=== PATIENT | male | born 1985 | race American Indian/Alaskan Native ===

== ENCOUNTER → 2023-05-14 15:34 | Outpatient (BNVA) | payer BC, MEDICAID, SELFPAY | PROVIDERS: Visit Provider Student in an Organized Health Care Education/Training Program | DX: M79.641 Pain in right hand (principal); M79.642 Pain in left hand; G56.01 Carpal tunnel syndrome, right upper limb | CPT/HCPCS: 73130 ==

== ENCOUNTER → 2023-05-19 15:52 | Outpatient (BNVA) | payer BC, MEDICAID, SELFPAY | PROVIDERS: Visit Provider Student in an Organized Health Care Education/Training Program | DX: S83.8X2A Sprain of other specified parts of left knee, initial encounter; X58.XXXA Exposure to other specified factors, initial encounter | CPT/HCPCS: 73560; 73565 ==

== ENCOUNTER 2023-05-26 16:30 | Emergency (ER) | payer BC, MEDICAID, SELFPAY ==
--- NOTE | 2023-05-26 16:32 | XRR_ITS ---
PROCEDURE INFORMATION: Exam: XR Chest Exam date and time: 05/26/2023 4:48 PM Age: 38 years old Clinical indication: Pain; Angina pectoris; Additional info: Cp TECHNIQUE: Imaging protocol: Radiologic exam of the chest. Views: 1 view. COMPARISON: No relevant prior studies available. FINDINGS: Lungs: Unremarkable. No consolidation. Pleural spaces: Unremarkable. No pleural effusion. No pneumothorax. Heart/Mediastinum: Unremarkable. No cardiomegaly. Bones/joints: Unremarkable. XR/XR chest 1V portable [id number] IMPRESSION: No acute findings.
--- NOTE | 2023-05-26 16:32 | ECG_ITS ---
[facility] Test Date: 2023-05-26 Pat Name: Deangelo Oneill Department: Room: Gender: Male Hub Bander: : 1985 Requested By: Foster Dunham Order Number: [id number] Tonia MD: Andreas Donis M.D. Measurements Intervals [place] Rate: 132 P: 49 VT: 167 QRS: 101 QRSD: 88 T: 4 QT: 301 QTc: 447 Interpretive Statements SINUS TACHYCARDIA RIGHT AXIS DEVIATION [QRS AXIS > 100] No previous ECG available for comparison Electronically Signed On 05-26-2023 16:49:41 LICENSED SURVEYOR by Andreas Donis M.D. [id number]
[2023-05-26 16:39] VITALS: BP 158/97; PULSE 123; RESP 16; TEMP 36.7; O2SAT 96; BMI 34.7
[2023-05-26 17:12] LABS: Basophils % 0.6 %; Eosinophils # 0.1 10^3/uL (0.0-0.8); Eosinophils % 0.9 %; Hematocrit 49.5 % (37-53); Lymphocytes # 0.9 10^3/uL (0.8-4.8); Lymphocytes % 12.5 %; Mean Corpuscular HGB Conc 34.5 g/dL (30-55); Mean Corpuscular Hemoglobin 29.3 pg (27-33); Mean Corpuscular Volume 84.9 fl (82-101); Mean Platelet Volume 10.1 fL (7.4-10.4); Monocytes % 14.4 %; Neutrophils # 4.86 10^3/uL (1.8-7.7); Neutrophils % 71.3 %; Nucleated Red Blood Cells % 0 %; Platelet Count 202 10^3/cmm (157-399); Red Blood Count 5.83 10^6/uL (3.85-5.65); Red Cell Distribution Width 12.4 % (12.1-15.1); White Blood Count 6.81 10^3/uL (3.29-11.43)
[2023-05-26 17:39] LABS: Alanine Aminotransferase 31 U/L (0-41); Albumin Level 4.9 g/dL (3.5-5.2); Alkaline Phosphatase 62 U/L (40-130); Aspartate Amino Transferase 26 U/L (0-40); Blood Urea Nitrogen 14 mg/dL (6-20); Calcium 9.8 mg/dL (8.5-10.5); Carbon Dioxide 22 mmol/L (22-29); Chloride 105 mmol/L (98-107); Creatinine Clr Calc Pharmacy 117.8887; Globulin 2.3 g/dL (1.3-4.6); Glomerular Filtration Rate 84.1 mL/min (90-130); Glucose 105 mg/dL (65-115); Lipase 70 U/L (13-60); Osmolality Calculated 289 mOsm/kg (285-295); Sodium 139 mmol/L (136-145); Total Bilirubin 0.4 mg/dL (0.15-1.2); Total Protein 7.2 g/dL (6.6-8.7)
[2023-05-26 17:53] LABS: Troponin(5th) Baseline < 6 ng/L (0-15)
[2023-05-26 18:20] LABS: ABG PCO2 32.5 mmHg (35-45); ABG PH Result 7.44 (7.35-7.45); Alveolar-Arterial Oxygen Gradi 3.3 mmHg (5-10); Arterial Blood Gas Hematocrit 53.6 % (42-52); Base Excess ABG -1.3 mmol/L (-2.0-2.0); Blood Gas Operator Identificat AMH; Blood Gas Sample Site Brachial, left; Blood Gas Sample Type Arterial; Carboxyhemoglobin 1.1 %THgb (0.4-20.1); HCO3 ABG 21.8 mmol/L (22-26); HGB O2 Sat 96.3 % (95-100); Ionized Calcium Level - ABG 1.3 mmol/L (1.1-1.4); Methemoglobin 0.6 % (0.4-1.5); Oxygen Device ROOM AIR; PO2 ABG 80.4 mmHg (80.0-100.0); PO2 FiO2 Ratio Arterial Blood 0; Potassium Level - ABG 3.8 mmol/L (3.5-5.0); Total Hemoglobin 17.5 g/dL (14-18)
--- NOTE | 2023-05-26 18:32 | ECG_ITS ---
[facility] Test Date: 2023-05-26 Pat Name: Deangelo Oneill Department: Room: Gender: Male Automated Access Systems Technician: : 1985 Requested By: Foster Dunham Order Number: [id number] Tonia MD: Andreas Donis M.D. Measurements Intervals [place] Rate: 99 P: 43 MT: 167 QRS: 90 QRSD: 90 T: -1 QT: 318 QTc: 409 Interpretive Statements SINUS RHYTHM ABNORMAL QRS-T ANGLE [QRS-T AXIS DIFFERENCE > 60] Compared to ECG 05/26/2023 16:33:59 Sinus tachycardia no longer present Right-axis deviation no longer present Electronically Signed On 05-27-2023 9:14:07 CHIEF ENTERPRISE ARCHITECT by Andreas Donis M.D. [id number]
--- NOTE | 2023-05-26 18:33 | W.ED.HA ---
HPI - Headache General: Chief Complaint: Headache Stated Complaint: chest pain Time Seen by Provider: 05/26/23 17:55 Source: patient Mode of arrival: ambulatory Limitations: no limitations History of Present Illness: 38yo male presents with headache, cough, and intermittent sharp chest pain that has been ongoing for the past 2 days. Patient reports that he has also had some dizziness and blurred vision. Patient reports that his symptoms started suddenly. States he initially thought that the cough may be causing the intermittent chest discomfort, but his father did pass at the heart attack at the age of 47 and he does have family history of cardiac issues. Patient reports his 3-year-old daughter was sick last week with a GI bug. He did not think that his symptoms would be related to that since they were so different. He is unsure of any fevers. He also does work spraying spray foam and has been in a very large building with a diesel generator running with only the doors on the sides open. He was concerned of possible car monoxide poisoning as well. Patient denies difficulty breathing, shortness of breath, vomiting, diarrhea, any other concerns at this time. Associated symptoms: Reports chest pain (intermittent, sharp); Deny fever(s) or vomiting Review of Systems Const: Reports: chills; Denies: fever(s) Eyes: Reports: blurry vision (intermittently) Card: Reports: chest pain (intermittent, sharp) Resp: Reports: non-productive cough; Denies: dyspnea GI: Denies: abdominal pain, vomiting or diarrhea Musc: Denies: back pain Neuro: Reports: headache(s) [facility] [place] [facility] PFSH: Social History (Updated 05/19/23 @ 15:59 by Neha Bright LPN) Smoking and tobacco/nicotine status: never used tobacco/nicotine Alcohol intake: current Alcohol intake frequency: few times a month Physical Exam Const: COMMON NORMALS: no acute distress, patient oriented x3 and alert GENERAL APPEARANCE: cooperative ORIENTATION/CONSCIOUSNESS: Yes awake OTHER: Patient is sitting upright on stretcher no acute distress. He is able to give history with no difficulty. He is interactive with exam appropriately. No family is at bedside HENMT: COMMON NORMALS: normocephalic and Normal external nose present HEAD & SCALP: normocephalic NOSE: Normal external nose present MOUTH: Normal oral and palatal mucosa present Eye: GENERAL EYE: appearance normal, both eyes and all related structures Neck/C-Spine: COMMON NORMALS: full ROM Chest: CHEST: Yes Symmetrical chest wall rise Resp: COMMON NORMALS: normal respiratory effort and clear to auscultation bilaterally EFFORT & INSPECTION: Yes able to speak in complete sentences and Yes Actively coughing (Frequent) dry AUSCULTATION: clear to auscultation bilaterally Cardio: COMMON NORMALS: regular rate and regular rhythm RATE: regular rate RHYTHM: regular rhythm OTHER: HR noted to be 100bpm at time of exam Extremity: COMMON NORMALS: full ROM Neuro: COMMON NORMALS: patient oriented x3 SENSORIUM/ORIENTATION: Yes alert Psych: COMMON NORMALS: cooperative and speech normal ATTITUDE: Yes calm SPEECH: Yes normal speech Course Vital Signs: Vital signs: Vital Signs Temperature 98.1 F 05/26/23 16:39 Pulse Rate 101 H 05/26/23 19:30 Respiratory Rate 16 05/26/23 19:30 Blood Pressure 145/87 05/26/23 19:30 Pulse Oximetry 95 05/26/23 19:30 Oxygen Delivery Me thod Room Air 05/26/23 19:30 MDM - Headache Medical Decision Making 38yo male here with headache, cough, intermittent sharp chest pain, intermittent dizziness, intermittent blurred vision that has been ongoing for the past couple of days. Patient does report that his father of a heart attack at the age of 47. He reports that his 3-year-old daughter did come home from daycare sick last week, but she had GI illness and his symptoms seem different. Patient is nontoxic in appearance. Vital signs are stable. Broad differential to include but not limited to: Cardiac etiology, migraine, viral illness, sinusitis Labs and imaging were obtained prior to room placement. Discussed with patient this may be viral in nature, patient declined viral testing. CBC is grossly unremarkable. CMP is also grossly unremarkable. Lipase is noted to be mildly elevated at 70. Baseline troponin is less than 6 with a 2-hour troponin 6.00. ABG does indicate a carboxyhemoglobin of 1.1, well within the normal range. Chest x-ray with no acute abnormalities noted. EKGs are grossly unremarkable. Discussed all of these findings with patient. Advised that this is likely viral in nature. Recommend he increase his fluid intake and continue to monitor symptoms. Benzonatate prescribed for the cough. Recommend he follow-up with primary care, call later this week with an update of symptoms and to discuss a recheck. Advised to return to the emergency department if any rapid worsening symptoms, sustained chest pain, shortness of breath, difficulty breathing, and as needed. Patient states understanding has no further questions or concerns at this time. Medical Records I reviewed the patient's medical records. Lab Data I reviewed the patient's lab results. 05/26/23 16:48 05/26/23 16:48 Radiology Impressions Chest X-Ray 05/26/23 16:32 IMPRESSION: No acute findings. Laboratory Results WBC 6.81 10^3/uL (3.29-11.43) 05/26/23 16:48 RBC 5.83 10^6/uL (3.85-5.65) H 05/26/23 16:48 Hgb 17.10 g/dL (11.27-16.99) H 05/26/23 16:48 Hct 49.5 % (37-53) 05/26/23 16:48 MCV 84.9 fl (82-101) 05/26/23 16:48 MCH 29.3 pg (27-33) 05/26/23 16:48 MCHC 34.5 g/dL (30-55) 05/26/23 16:48 RDW 12.4 % (12.1-15.1) 05/26/23 16:48 Plt Count 202 10^3/cmm (157-399) 05/26/23 16:48 MPV 10.1 fL (7.4-10.4) 05/26/23 16:48 Neut % (Auto) 71.3 % 05/26/23 16:48 Lymph % (Auto) 12.5 % 05/26/23 16:48 Hendry % (Auto) 14.4 % 05/26/23 16:48 Eos % (Auto) 0.9 % 05/26/23 16:48 Baso % (Auto) 0.6 % 05/26/23 16:48 Neut # (Auto) 4.86 10^3/uL (1.8-7.7) 05/26/23 16:48 Lymph # (Auto) 0.9 10^3/uL (0.8-4.8) 05/26/23 16:48 Hendry # (Auto) 1.0 10^3/uL (0.2-0.9) H 05/26/23 16:48 Eos # (Auto) 0.1 10^3/uL (0.0-0.8) 05/26/23 16:48 Baso # (Auto) 0.0 10^3/uL (0.0-0.1) 05/26/23 16:48 Nucleated RBC % (auto) 0 % 05/26/23 16:48 Nucleated RBCs # 0.0 /100WBC 05/26/23 16:48 Specimen Type Arterial 05/26/23 18:09 Sample Site Brachial, left 05/26/23 18:09 ABG pH 7.44 (7.35-7.45) 05/26/23 18:09 ABG pCO2 32.5 mmHg (35-45) L 05/26/23 18:09 ABG pO2 80.4 mmHg (80.0-100.0) 05/26/23 18:09 ABG PO2/FiO2 Ratio 0 05/26/23 18:09 ABG HCO3 21.8 mmol/L (22-26) L 05/26/23 18:09 ABG O2 Saturation 98.0 05/26/23 18:09 ABG Base Excess -1.3 mmol/L (-2.0-2.0) 05/26/23 18:09 Caden Test N/a 05/26/23 18:09 A-a O2 Gradient 3.3 mmHg (5-10) L 05/26/23 18:09 Hematocrit 53.6 % (42-52) H 05/26/23 18:09 Hgb O2 Saturation 96.3 % (95-100) 05/26/23 18:09 Carboxyhemoglobin 1.1 %THgb (0.4-20.1) 05/26/23 18:09 Methemoglobin 0.6 % (0.4-1.5) 05/26/23 18:09 Total Hemoglobin 17.5 g/dL (14-18) 05/26/23 18:09 Sodium 140.0 mmol/L (131-143) 05/26/23 18:09 Potassium 3.8 mmol/L (3.5-5.0) 05/26/23 18:09 Glucose 101.0 mg/dL (70-115) 05/26/23 18:09 Ionized Calcium 1.3 mmol/L (1.1-1.4) 05/26/23 18:09 O2 Delivery Device Room air 05/26/23 18:09 FiO2 21.0 % 05/26/23 18:09 Eyewear Consultant ID Amh 05/26/23 18:09 Sodium 139 mmol/L (136-145) 05/26/23 16:48 Potassium 4.0 mmol/L (3.5-5.1) 05/26/23 16:48 Chloride 105 mmol/L (98-107) 05/26/23 16:48 Carbon Dioxide 22 mmol/L (22-29) 05/26/23 16:48 Anion Gap 16.0 (5-19) 05/26/23 16:48 BUN 14 mg/dL (6-20) 05/26/23 16:48 Creatinine 1.0 mg/dL (0.7-1.2) 05/26/23 16:48 GFR Calculation 84.1 mL/min (90-130) L 05/26/23 16:48 Glucose 105 mg/dL (65-115) 05/26/23 16:48 Calculated Osmolality 289 mOsm/kg (285-295) 05/26/23 16:48 Calcium 9.8 mg/dL (8.5-10.5) 05/26/23 16:48 Total Bilirubin 0.4 mg/dL (0.15-1.2) 05/26/23 16:48 AST 26 U/L (0-40) 05/26/23 16:48 ALT 31 U/L (0-41) 05/26/23 16:48 Alkaline Phosphatase 62 U/L (40-130) 05/26/23 16:48 Troponin T Baseline < 6 ng/L (0-15) 05/26/23 16:48 Troponin T 120 Minute 6.00 ng/L (0-15) 05/26/23 18:35 Delta Troponin T [id number] ABS# (0-10) 05/26/23 18:35 Total Protein 7.2 g/dL (6.6-8.7) 05/26/23 16:48 Albumin 4.9 g/dL (3.5-5.2) 05/26/23 16:48 Globulin 2.3 g/dL (1.3-4.6) 05/26/23 16:48 Lipase 70 U/L (13-60) H 05/26/23 16:48 XR interpretation done by ED provider, pending radiology final review Discharge Plan Discharge Patient Disposition: Home Clinical Impression: Viral URI with cough Condition: Stable Prescriptions: New benzonatate 200 mg capsule 200 mg PO TID PRN (Reason: cough) Qty: 20 0RF No Action tirzepatide 2.5 mg/0.5 mL pen injector SUBCUT Discharge Orders: Discharge ED (Routine); Ordered 05/26/23 Ordered By: Johan Kemp Discharge Diet: Usual diet Discharge Activity: Resume usual activity Patient Instructions: Upper Respiratory Infection (ED) Activity Restrictions/Additional Instructions: There were no acute abnormalities noted on your chest x-ray or on your labs today. Specifically, your heart labs were in the normal range. Given that your symptoms all started at the same time, this is likely an upper respiratory infection that is viral in nature Benzonatate has been sent to the pharmacy for your cough Increase your fluid intake and continue to monitor your symptoms Follow-up with your doctor, call later this week with an update of symptoms and to discuss recheck Return to the emergency department if any rapid worsening symptoms, difficulty breathing, shortness of breath, sustained chest pain, and as needed. Coding Level of Care Code ED Document Review Specialist for Cece Harkins
[2023-05-26 18:53] VITALS: PULSE 98; RESP 22; O2SAT 93
[2023-05-26 18:59] VITALS: BP 153/92; PULSE 96; RESP 16; O2SAT 94
[2023-05-26 18:59] LABS: Troponin 5 2HR Delta 0.00001 ABS# (0-10)
[2023-05-26 19:30] VITALS: BP 145/87; PULSE 101; RESP 16; O2SAT 95
== END 2023-05-26 20:00 | disposition home or self-care (01) ==
PROVIDERS: Emergency Medicine; Emergency Provider Nurse Practitioner
DX: J06.9 Acute upper respiratory infection, unspecified (principal); R05.9 Cough, unspecified
CPT/HCPCS: 36415; 36600; 71045; 80051; 80053; 82330; 82805; 83690; 84484; 85025; 93005; 99285

== ENCOUNTER 2023-06-24 13:45 | Outpatient (CLI) | payer BC, MEDICAID, SELFPAY ==
--- NOTE | 2023-06-24 13:45 | MR_ITS ---
WS: [id number] MRI LEFT KNEE HISTORY: meniscal injury COMPARISON: Radiographs 05/19/2023 Anterior cruciate ligament: Intact. Posterior cruciate ligament: Intact. Medial collateral ligament: Intact. Posterior lateral corner structures: Intact. Medial menisci: Intact. Normal signal, size and shape. Lateral meniscus: Intact. Normal signal, size and shape. Extensor mechanism: Distal quadriceps tendon and patellar tendons are intact. Fluid and soft tissue: Very small suprapatellar joint effusion. No Morrison's cyst. Osseous and articular structures: Patellofemoral compartment: Normal. Medial compartment: Mild narrowing of the medial compartment with fissuring and thinning of the carti taiwo. There is a very superficial osteochondral irregularity along the weightbearing surface of the t ibial plateau. No loose body identified. Lateral compartment: No significant narrowing of the lateral compartment. Very early loss of the norm al cortex along the lateral tibial plateau. There is a very small amount of marrow edema in the poste rior lateral tibial plateau. IMPRESSION: 1. No meniscal tear. 2. No significant joint effusion. 3. Very minimal subchondral changes along the medial and lateral tibial plateaus. No loose body or f racture. There is additional very minimal marrow edema in the posterior lateral tibia.
== END 2023-06-24 13:46 | disposition home or self-care (01) ==
LOC: RAD 13:45
PROVIDERS: Visit Provider Student in an Organized Health Care Education/Training Program
DX: S83.8X2A Sprain of other specified parts of left knee, initial encounter (principal); X58.XXXA Exposure to other specified factors, initial encounter
CPT/HCPCS: 73721